=== PATIENT | male | born 1980 | race Caucasian/White ===

== ENCOUNTER 2016-11-21 06:23 | Day surgery (SDC) | payer MEDICARE ==
[~2016-11-21] VITALS: Ht 188 cm; Wt 88.5 kg
[~2016-11-21 06:23] MED LIST: ARTIFICIAL TEAR1510 BOTH EYES; ASPIRIN E.C.81 M1 PO; EXCEDRIN MIGRA1 EAC3 PO; HUMALOG100 UNIT/1 SQ; INSULIN PUMP SCCONT; INSULIN PUMP SQ; PRAVASTATIN SOD40 MG PO; PRILOSEC OTC20 MG PO; TAMIFLU75 MG PO; VISINE A.C300 DROP/1 BOTH EYES
[2016-11-21 07:00] VITALS: BP 130/90
[2016-11-21 07:41] LABS: POINT-OF-CARE METER ID UU14174212
[2016-11-21 10:04] LABS: POINT-OF-CARE METER ID UU13113675
[2016-11-21 10:21] VITALS: BP 117/80
[2016-11-21 11:20] VITALS: BP 126/90
== END 2016-11-21 11:46 | disposition home or self-care (01) ==
LOC: SDC 06:23
PROVIDERS: Ophthalmology
DX: H43.11 Vitreous hemorrhage, right eye (principal); H33.21 Serous retinal detachment, right eye; E11.3591 Type 2 diabetes mellitus with proliferative diabetic retinopathy without macular edema, right eye; E78.5 Hyperlipidemia, unspecified; Z82.49 Family history of ischemic heart disease and other diseases of the circulatory system; Z83.49 Family history of other endocrine, nutritional and metabolic diseases; Z83.3 Family history of diabetes mellitus; Z80.3 Family history of malignant neoplasm of breast; Z88.5 Allergy status to narcotic agent; Z88.8 Allergy status to other drugs, medicaments and biological substances
CPT/HCPCS: 82948; J0690; J0713; J2250; J2405; J3010; J3300

== ENCOUNTER → 2017-05-20 | Outpatient (CLI) | payer SELFPAY ==
[~2017-05-20] MED LIST changes: +ASPIR 8181 M1 PO; +ASPIRIN81 M2 PO; +CRESTOR5 MG PO; +WELLBUTRIN75 MG PO
== END | disposition home or self-care (01) ==
LOC: RAD 12:49
DX: E04.2 Nontoxic multinodular goiter (principal)
CPT/HCPCS: 76536